=== PATIENT | male | born 1950 | race Caucasian/White ===

== ENCOUNTER 2018-10-27 12:00 | Day surgery (SDC) | payer OTHER ==
[~2018-10-27 12:00] MED LIST: LOSARTAN-HCTZ1 EACH PO; PROCARDIA XL90 MG PO; XALATAN
== END 2018-10-27 20:15 | disposition home or self-care (01) ==
LOC: CIR.AMB 12:00
DX: S43.122A Dislocation of left acromioclavicular joint, 100%-200% displacement, initial encounter (principal); M75.122 Complete rotator cuff tear or rupture of left shoulder, not specified as traumatic; M19.012 Primary osteoarthritis, left shoulder
CPT/HCPCS: 23120; 23420; 23430; 23552; C1776